=== PATIENT | female | born 1970 | race Caucasian/White ===

== ENCOUNTER 2016-12-18 08:47 | Emergency (ER) | payer OTHER ==
[~2016-12-18] VITALS: Ht 162.6 cm; Wt 75.0 kg
[~2016-12-18 08:47] MED LIST: LORATADINE PO
[2016-12-18 09:04] VITALS: BP 150/100; PULSE 117; RESP 14; O2SAT 98
--- NOTE | 2016-12-18 09:23 | ED.REPORT ---
HPI-Chest Pain 40 and Over Date of Service Dec 18, 2016 ED Provider: Dr. Anne 46 y/o female with a hx of anxiety presents to the ED complaining of non- radiating chest pain, onset yesterday morning. She describes the pain as "tightness" which improves when she sits up. Associated sx include SOB and pleuritic pain. She denies lightheadedness, syncope, cough, fever, chills, and hemoptysis. She used to experience episodes of rapid arrhythmia of unknown diagnosis, for which she used to take Atenolol but stopped taking it when . She has no history of DVT, PE, cancer, recent surgeries. Pt has never had similar sx before and feels better since arriving in the ED. Nursing Notes Stated Complaint: HURTS TO BREATHE Chief Complaint: Respiratory Complaints Nursing Notes Reviewed: Yes Allergies: Coded Allergies: Sulfa (Sulfonamide Antibiotics) (Verified Allergy, Intermediate, hives, ) Scheduled ([Otc Clartin]) 1 TAB PO DAILY General Time Seen by MD: 09:22 Chief Complaint Chest pain Hx Obtained From: Patient Arrived By: Walk-in Sudden in Onset?: Yes Onset Occurred: 1 day ago Symptom Duration: Since onset Location: : Substernal Quality: Painful Radiation: : Does not radiate Severity: Current: Mild Severity: Maximum: Mild Recent Healthcare: Recent doctor visit Similar Sx Previous: No Risk Factors )( CAD Risk Stratification No risk factors )( TAD Risk Stratification No risk factors )( PE Risk Stratification No risk factors Past Medical History Past Medical History Hx prior rapid arrhythmia with no diagnosis Past Surgical History Reports: Cholecystectomy Smoking History Former Smoker Social History Other Social History: Good social support Ambulatory Status Independent Review of Systems Constitutional: Denies: Chills, Fever Respiratory: Reports: Pleuritic pain, Shortness of breath, Denies: Hemoptysis, Non-productive cough Cardiovascular: Reports: Chest pain, Denies: Edema, Syncope GI: Denies: Abdominal pain, Nausea, Vomiting Musculoskeletal: Denies: Back pain, Extremity pain Psychiatric: Reports: Anxiety, Denies: Agitation Complete sys rev & neg: except as marked. Physical Exam Initial Vital Signs Vital Signs (First) Date Time Temp Pulse Resp B/P Pulse Ox O2 Delivery O2 Flow Rate FiO2 12/18/16 09:04 36.4 117 14 150/100 98 Room Air Initial VS: Reviewed, Vital signs normal Head / Eyes: Atraumatic, Normocephalic, PERRL ENT: Mucous membranes moist, Conjunctiva normal, No scleral icterus Neck: Supple, Non-tender, Full range of motion Extremities: Vascular intact, Neuro intact, No swelling, No tenderness Skin: Warm, Dry, No cyanosis Neurologic: Alert, Oriented, Nonfocal Psychiatric: Mood/affect normal, Behavior normal, Normal thought content General/Constitutional: Awake, Alert, No acute distress, Cooperative, Not toxic appearing Respiratory / Chest: Atraumatic, Breath sounds NL, Breath sounds = bilat, No respiratory distress, No rales, No rhonchi, No wheezing, No retractions, No stridor, No chest tenderness, No chest wall deformity, No crepitus Cardiovascular: Heart rate NL, Regular rhythm, Heart sounds NL, No gallop, No murmurs, No rubs, Cap refill not delayed, Peripheral circulation NL Abdomen: Atraumatic, Soft, Non-tender Neck: Atraumatic, Full range of motion Back: Atraumatic, Full range of motion Lower Extremity / Pelvis / MS: Atraumatic, Full range of motion Skin: Atraumatic, Color NL, No rash, Warm, Dry Psychiatric: Affect NL, Mood NL Upper Extremity / MS: Atraumatic, Full range of motion Interpretation & Diagnostics Lab Results Interpretation Result Diagram: 12/18/16 0929 12/18/16 0929 Test 12/18/16 09:29 12/18/16 10:17 White Blood Count 16.2th/mm3 (3.8-10.1) Red Blood Count 4.69mil/mm3 (3.90-5.20) Hemoglobin 13.8g/dL (12.0-15.6) Hematocrit 41.7% (35.0-46.0) Mean Corpuscular Volume 88.9fL (81-100) Mean Corpuscular Hemoglobin 29.4pg (27.0-35.0) Mean Corpuscular Hemoglobin Concent 33.1% (32.0-37.0) Red Cell Distribution Width 13.2% (12.3-15.4) Platelet Count 464bil/L (150-400) Neutrophils (%) (Auto) 77.1% (40-74) Lymphocytes (%) (Auto) 17.9% (14-46) Monocytes (%) (Auto) 4.0% (4-12) Eosinophils (%) (Auto) 0.4% (0-5) Basophils (%) (Auto) 0.4% (0-3) Sodium Level 134mEq/L (134-144) Potassium Level 4.2mEq/L (3.5-5.2) Chloride Level 98mEq/L (97-108) Carbon Dioxide Level 20mmol/L (18-29) Blood Urea Nitrogen 13mg/dL (6-24) Creatinine 0.65mg/dL (0.57-1.00) Estimat Glomerular Filtration Rate 140mL/min (>59) Glucose Level 144mg/dL (60-99) Calcium Level 10.3mg/dL (8.5-10.1) Total Bilirubin 0.3mg/dL (0.0-1.2) Aspartate Amino Transf (AST/SGOT) 19U/L (0-50) Alanine Aminotransferase (ALT/SGPT) 24U/L (0-32) Alkaline Phosphatase 74U/L (25-150) Troponin T < 0.010ug/L (0.0-0.011) Pro-B-Type Natriuretic Peptide 35.30pg/mL (0-249) Total Protein 8.1g/dL (6.4-8.4) Albumin 4.7g/dL (3.4-5.0) Lipase 11U/L (13-60) Urine Color Yellow (YELLOW) Urine Appearance Hazy (CLEAR,HAZY) Urine pH 7.0 (5.0-8.0) Urine Specific [place] 1.020 (1.003-1.035) Urine Protein Negativemg/dL (NEG,TRACE) Urine Glucose (UA) Negativemg/dL (NEGATIVE) Urine Ketones Negativemg/dL (NEGATIVE) Urine Occult Blood Negative (NEGATIVE) Urine Nitrite Negative (NEGATIVE) Urine Bilirubin Negative (NEGATIVE) Urine Urobilinogen Normalmg/dL (NORMAL) Urine Leukocyte Esterase Negative (NEGATIVE) Urine RBC 3-10/hpf (0-2) Urine WBC 0-5/hpf (0-5) Urine Epithelial Cells Occasional/hpf (NONE-MOD) Urine Crystals None seen (NONE SEEN) Urine Bacteria Few/hpf (NONE-FEW) Urine Hyaline Casts None/lpf (NONE) Urine Granular Casts None seen (NONE SEEN) Urine Waxy Casts None seen (NONE SEEN) Urine Red Blood Cell Casts None seen (NONE SEEN) Urine White Blood Cell Casts None seen (NONE SEEN) Urine Mucus Present (None Seen) Urine Trichomonas None seen (NONE SEEN) Urine Yeast None (NONE SEEN) Urinalysis Comment None Urine Culture Reflexed Not indicated ECG Interpretation Time: 09:49 Interpreted by: ED physician Normal ECG Interpretation: Normal ECG w/ rate of... (96), Normal rate, Normal sinus rhythm, No acute ischemic changes, Normal QRS, Normal axis, Normal intervals, Adequate tracing CT Chest Interpretation IMPRESSION: 1. No evidence of pulmonary embolism. Dictated by: Dimitri Easley M.D. on 12/18/2016 at 11:21 Approved by: Dimitri Easley M.D. on 12/18/2016 at 11:25 Study type: CT pulm angiogram Interpretation / Wet Read by: Interpret - Radiologist Re-Eval/Medical Decision Source of Hx: Old records Time of Eval: 12:17 Re-Evaluation/Progress Note: Pt rechecked. Informed pt of plan for treatment. Pt understands and agrees with plan for treatment. F/U instructions and RTER warnings given. All questions addressed. Counseled Regarding: Diagnosis, Lab results, Need for follow-up, When/why to return to ED Discharge & Departure Primary Impression: Chest pain Chest pain type: chest pain on breathing Qualified Code: R07.1 - Chest pain on breathing Disposition: Home Discharge Condition All VS Reviewed: Yes Condition: Stable Patient Instructions: Chest Pain (ED) Additional Instructions: No dangerous cause for the chest pain is discovered today. Specifically, no evidence of heart attack or pulmonary embolism or pneumonia. I recommend follow -up Thursday or Thursday at the clinic for further evaluation. In the meantime, use Tylenol or ibuprofen and a potent antacid medication to see if these things help the symptoms that you have. Return to the emergency department for fainting, high fever or prostration. Otherwise follow-up as defined above. Referrals: [facility] Scribe Attestation Portions of this note were transcribed by Yovany Cortes. I, Dr. Anne personally performed the history, physical exam and medical decision-making; I reviewed and confirmed the accuracy of the information in the transcribed note. Signed by Yovany Cortes and Kaushal Mccarthy, 12/18/16 - 1224 copies to: [facility] Ike Anne MD Dec 18, 2016 09:23 Ruiz Trevino Dec 18, 2016 09:33 YOVANY CORTES Dec 18, 2016 12:01
[2016-12-18] MEDS ORDERED: LORazepam 0.5 mg Tablet PO PRN (09:35)
[2016-12-18 09:37] LABS: BASOPHILS % (AUTO) 0.4 % (0-3); EOSINOPHILS % (AUTO) 0.4 % (0-5); Mean Corpuscular Hemoglobin 29.4 pg (27.0-35.0); Mean Corpuscular Volume 88.9 fL (81-100); NEUTROPHILS % (AUTO) 77.1 % (40-74); Platelet Count 464 bil/L (150-400)
[2016-12-18 10:05] VITALS: BP 133/97; PULSE 91; RESP 18; O2SAT 100
[2016-12-18 10:27] LABS: TROPONIN T < 0.010 ug/L (0.0-0.011)
[2016-12-18 10:41] LABS: COLOR,URINE YELLOW (YELLOW)
[2016-12-18 10:42] LABS: APPEARANCE,URINE HAZY (CLEAR,HAZY); OCCULT BLOOD,URINE NEGATIVE (NEGATIVE); UROBILINOGEN,URINE NORMAL (NORMAL)
--- NOTE | 2016-12-18 11:27 | DRSVH ---
PROCEDURE: CT ANGIO CHEST PULMONARY EMBOLISM ([id number]) INDICATIONS: chest pain, tachycardia TECHNIQUE: After the administration of intravenous contrast, 2 mm thick sections acquired from the pulmonary api keith to the posterior costophrenic angles. 3-dimensional maximum intensity projection (MIP) coronal a nd sagittal reformats were then acquired through the thorax. For radiation dose reduction, the follo wing was used: automated exposure control, adjustment of mA and/or kV according to patient size. COMPARISON: None. FINDINGS: Image quality: Excellent. Pulmonary arteries: Pulmonary arteries are normal in size, and demonstrate no intraluminal filling d efects to suggest central pulmonary embolism. Lungs and pleura: There is minimal dependent atelectasis. No focal consolidation. No pleural effusi ons or pneumothorax. Central and peripheral airways are patent. Mediastinum: Heart size is normal, without pericardial effusion. No mediastinal or hilar adenopathy . Thoracic aorta is normal in caliber and enhancement. Esophagus is normal in caliber, without hiat al hernia. Bones and chest wall: No suspicious bony lesions. Ribs and thoracic spine appear intact throughout. Thyroid gland demonstrates no discrete nodules. No axillary or supraclavicular adenopathy. Abdomen: Visualized upper abdomen demonstrates absence of the gallbladder. IMPRESSION: 1. No evidence of pulmonary embolism. Dictated by: Dimitri Easley M.D. on 12/18/2016 at 11:21 Approved by: Dimitri Easely M.D. on 12/18/2016 at 11:25
[2016-12-18 12:40] VITALS: BP 128/92; PULSE 86; RESP 18; O2SAT 100
[2016-12-18] MEDS ORDERED: ESCI10TA3 PO (15:11)
== END 2016-12-18 12:23 | disposition home or self-care (01) ==
LOC: SED 08:47
DX: R07.1 Chest pain on breathing (principal); Z87.891 Personal history of nicotine dependence; Z88.2 Allergy status to sulfonamides
CPT/HCPCS: 71275; 80053; 81000; 83690; 83880; 84484; 85025; 93005; 99285; Q9967